=== PATIENT | female | born 1955 | race Caucasian/White ===

== ENCOUNTER 2023-02-20 19:43 | Emergency (ER) | payer BC, MEDICAID ==
[~2023-02-20] VITALS: Ht 165.1 cm; Wt 85.0 kg
[2023-02-20 19:47] VITALS: O2SAT 97
[2023-02-20] MEDS ORDERED: PROCHLORPERAZINE 10MG/2ML VIAL IV PRN (22:00)
[2023-02-20] MEDS ORDERED: DIPHENHYDRAMINE 50MG/ML VIAL IV ONE (22:00)
[2023-02-20 22:10] LABS: BASOPHILS % 0.5 % (0.0-2.0); EOSINOPHILS % 2.3 % (0.0-5.0); HEMATOCRIT. 38.5 % (36.0-48.0); HEMOGLOBIN. 12.8 g/dL (12.0-16.0); LYMPHOCYTES % 17.3 % (20.0-50.0); MEAN CORPUSCULAR HEMOGLOBIN 28.8 pg (28.0-32.0); MEAN CORPUSCULAR HGB CONC 33.3 g/dL (31.0-37.0); MEAN CORPUSCULAR VOLUME 86.5 fL (81.0-99.0); MEAN PLATELET VOLUME 9.8 fl (7.4-10.4); MONOCYTES % 4.4 % (2.0-8.0); NEUTROPHILS % 75.5 % (40.0-76.0); PLATELET 172 x1000/uL (130-400); RED BLOOD CELL COUNT 4.45 mill/uL (4.2-5.4); WHITE BLOOD COUNT 10.8 x1000/uL (4.5-11.0)
[2023-02-20 22:21] LABS: ALANINE AMINOTRANSFERASE 29 IU/L (10-49); ALBUMIN 4.5 g/dL (3.2-4.8); ASPARTATE AMINOTRANSFERASE 35 IU/L (<34); BILIRUBIN TOTAL 0.7 mg/dL (0.1-1.0); CALCIUM 9.6 mg/dL (8.7-10.4); CARBON DIOXIDE 26 mEq/L (21-32); CHLORIDE 99 mEq/L (98-107); CREATININE 0.9 mg/dL (0.6-1.0); GLUCOSE 113 mg/dL (70-105); POTASSIUM 3.5 mEq/L (3.5-5.1); PROTEIN TOTAL 6.8 g/dL (6.0-8.3); SODIUM 133 mEq/L (136-145); UREA NITROGEN BLOOD 14 mg/dL (9-23)
[2023-02-21 02:14] VITALS: BP 131/70; PULSE 51; RESP 14; TEMP 98.1
== END 2023-02-21 02:25 | disposition home or self-care (01) ==
LOC: ER 19:43
DX: R51.9 Headache, unspecified (principal); R11.0 Nausea; I10 Essential (primary) hypertension
CPT/HCPCS: 99285; 96374; 71045; 96375; 80053; 83880; 85025; 36415; 93005; 70450; J1200

== ENCOUNTER 2025-01-28 14:01 | Emergency (ER) | payer MEDICARE, MEDICAID ==
[~2025-01-28] VITALS: Ht 154.9 cm; Wt 82.0 kg
[~2025-01-28 14:01] MED LIST: AMLO5TAB6 MT; ASPI-1497 MT; LOSA-413 MT; METO25TA6 MT
[2025-01-28 14:04] VITALS: TEMP 98.3; O2SAT 97
[2025-01-28] MEDS ORDERED: AMLO10TA80 MT (16:54)
[2025-01-28] MEDS ORDERED: IBUP-2028 MT (16:54)
[2025-01-28 17:08] VITALS: BP 189/103; PULSE 61; RESP 14; O2SAT 99
== END 2025-01-28 17:13 | disposition home or self-care (01) ==
LOC: ER 14:01
DX: R51.9 Headache, unspecified (principal); I10 Essential (primary) hypertension; E11.9 Type 2 diabetes mellitus without complications; E78.00 Pure hypercholesterolemia, unspecified; Z79.82 Long term (current) use of aspirin; Z79.899 Other long term (current) drug therapy
CPT/HCPCS: 99283